=== PATIENT | male | born 1945 | race Caucasian/White ===

== ENCOUNTER 2020-05-07 11:20 | Inpatient (IN) ==
[2020-05-07 12:02] LABS: Basophils % 0.5 %; Eosinophils # 0.2 K/mcL (0.0-0.6); Eosinophils % 2.7 %; Hematocrit 34.5 % (37.5-50.1); Hemoglobin 11.2 g/dL (12.9-16.9); Immature Granulocytes % 0.5 % (0-4); Lymphocytes # 1.1 K/mcL (0.6-4.6); Lymphocytes % 12.5 %; Mean Corpuscular HGB Conc 32.5 g/dL (31.6-35.5); Mean Corpuscular Hemoglobin 28.6 pg (28.0-33.3); Mean Platelet Volume 10.2 fL (9.4-12.4); Monocytes % 11.3 %; Neutrophils # 6.2 K/mcL (1.6-8.9); Platelet Count 214 K/mcL (140-400); Red Blood Count 3.92 M/mcL (4.19-5.50); Red Cell Distribution Width 14.7 % (11.5-14.5); Segmented Neutrophils % 72.5 %; White Blood Count 8.5 K/mcL (4.3-11.1)
[2020-05-07 12:04] LABS: VBG Ionized Calcium 1.09 mmol/L (1.15-1.35)
[2020-05-07 12:05] LABS: INR 1.1; Prothrombin Time 12.4 Seconds (9.4-12.1)
[2020-05-07 12:13] LABS: Bilirubin,Urine Negative (Negative); Blood,Urine Negative (Negative); Clarity,Urine Clear (Clear); Color,Urine Light-Yellow (Yellow); Glucose,Urine (UA) Normal (Normal); Hyaline Casts,Urine Few per lpf (None Seen); Ketones,Urine Negative (Negative); Leukocyte Esterase,Urine Trace (Negative); Nitrite,Urine Negative (Negative); PH,Urine 5.5 pH Units (5.0-8.0); Protein,Urine Negative (Neg-Trace); RBC,Urine 0-3 per hpf (0-3); Specific Gravity,Urine 1.014 (1.010-1.025); Squamous Epithelial Cell,Urine Few per hpf (None-Few); Urobilinogen,Urine Normal (Normal); WBC,Urine 0-3 per hpf (0-3)
[2020-05-07 12:37] LABS: VBG HCO3 25 mEq/L (21-27); VBG PCO2 57 mmHg (41-51); VBG PH 7.26 pH Units (7.32-7.42); VBG PO2 54 mmHg (25-50)
[2020-05-07 12:48] LABS: Albumin 3.5 g/dL (3.5-5.7); Albumin/Globulin Ratio 1.2 (1.1-2.2); Bilirubin,Total 0.7 mg/dL (0.3-1.0); Calcium 8.7 mg/dL (8.6-10.3); Globulin 2.9 g/dL (2.4-3.5); Magnesium 1.7 mg/dL (1.6-2.6); Phosphorous 3.8 mg/dL (2.7-4.5); Potassium 5.2 mEq/L (3.5-5.1); Thyroid Stimulating Hormone 2.68 mcIU/mL (0.340-5.600); Total Protein 6.4 g/dL (6.4-8.9); Troponin I 0.13 ng/mL (< 0.04)
[2020-05-07] MEDS ORDERED: Aspirin 81 MG TAB.CHEW PO ONE (12:56)
[2020-05-07] MEDS ORDERED: 0.9 % Sodium Chloride 1,000 ML IVC ONE (13:42)
[2020-05-07] MEDS ORDERED: *HR* HYDROcodone/Acet 5/325 mg TABLET PO PRN (14:56)
[2020-05-07] MEDS ORDERED: Ondansetron ODT 4 MG TAB.RAPDIS SL PRN (14:57)
[2020-05-07] MEDS ORDERED: Acetaminophen 325 MG TABLET PO PRN (14:57)
[2020-05-07] MEDS ORDERED: Naloxone 0.4 MG/ML INJ IVP PRN (14:57)
[2020-05-07] MEDS ORDERED: Dextrose Gel 15 GM/37.5 ML TUBE PO PRN ×2 (16:32)
[2020-05-07] MEDS ORDERED: *HR* Dextrose 50 % in Water (Vial) 50 ML VIAL IVP PRN (16:32)
[2020-05-07] MEDS ORDERED: D5% in Water 1,000 ML IVC PRN (16:32)
[2020-05-07] MEDS: *HR* OxyCODONE/APAP 10/325 TABLET PO SCH ×2 (18:26→22:00)
[2020-05-07] MEDS: 0.9 % Sodium Chloride 1,000 ML IVC SCH (18:27)
[2020-05-07 18:45] LABS: Calcium 8.8 mg/dL (8.6-10.3); Potassium 5.8 mEq/L (3.5-5.1); Troponin I 0.09 ng/mL (< 0.04)
[2020-05-07] MEDS: Loratadine 10 MG TABLET PO SCH (21:42)
[2020-05-07] MEDS: Insulin LISPRO 300 UNITS/3 ML VIAL SQ SCH (21:43)
[2020-05-08 00:25] LABS: Hemoglobin 11.4 g/dL (12.9-16.9); Mean Corpuscular HGB Conc 32.6 g/dL (31.6-35.5); Mean Corpuscular Hemoglobin 28.9 pg (28.0-33.3); Mean Corpuscular Volume 88.6 fL (83.0-100.0); Mean Platelet Volume 9.8 fL (9.4-12.4); Platelet Count 214 K/mcL (140-400); Red Blood Count 3.95 M/mcL (4.19-5.50); Red Cell Distribution Width 14.6 % (11.5-14.5); White Blood Count 5.6 K/mcL (4.3-11.1)
[2020-05-08 01:47] LABS: Calcium 8.7 mg/dL (8.6-10.3); Magnesium 1.9 mg/dL (1.6-2.6); Phosphorous 3.2 mg/dL (2.7-4.5); Potassium 5.1 mEq/L (3.5-5.1)
[2020-05-08] MEDS: 0.9 % Sodium Chloride 1,000 ML IVC SCH ×3 (01:47→16:32)
[2020-05-08] MEDS ORDERED: Perflutren Lipid Microsphere 1.3 ML in 0.9 % Sodium Chloride 8.7 ML IVP PRN (05:47)
[2020-05-08] MEDS: valACYclovir 500 MG TABLET PO SCH (08:10)
[2020-05-08] MEDS: Aspirin Enteric Coated 81 MG Tablet PO SCH (08:10)
[2020-05-08] MEDS: Loratadine 10 MG TABLET PO SCH ×2 (08:11→21:15)
[2020-05-08] MEDS: Insulin LISPRO 300 UNITS/3 ML VIAL SQ SCH ×4 (08:34→21:15)
[2020-05-08] MEDS: *HR* OxyCODONE/APAP 10/325 TABLET PO SCH ×4 (10:45→21:15)
[2020-05-08 21:56] LABS: Sodium, Urine 106.6 mEq/L
[2020-05-09] MEDS ORDERED: Cosyntropin 250 MCG/2 ML VIAL IVP ONE (07:47)
[2020-05-09 08:10] LABS: Hematocrit 37.4 % (37.5-50.1); Hemoglobin 12.1 g/dL (12.9-16.9); Mean Corpuscular HGB Conc 32.4 g/dL (31.6-35.5); Mean Corpuscular Hemoglobin 28.2 pg (28.0-33.3); Mean Corpuscular Volume 87.2 fL (83.0-100.0); Mean Platelet Volume 9.4 fL (9.4-12.4); Platelet Count 244 K/mcL (140-400); Red Blood Count 4.29 M/mcL (4.19-5.50); Red Cell Distribution Width 14.6 % (11.5-14.5); White Blood Count 7.5 K/mcL (4.3-11.1)
[2020-05-09 08:29] LABS: BUN/Creatinine Ratio 18 (6-26); Blood Urea Nitrogen 22 mg/dL (8-23); Calcium 9.5 mg/dL (8.6-10.3); Carbon Dioxide 21 mEq/L (23-29); Chloride 97 mEq/L (98-107); Glucose 244 mg/dL (70-105); Osmolality,Calculated 279 (280-300); Potassium 4.9 mEq/L (3.5-5.1); Sodium 129 mEq/L (136-145); eGFR For African Americans > 60 (> 60); eGFR For Non-African Americans 59 (> 60)
[2020-05-09] MEDS: valACYclovir 500 MG TABLET PO SCH (08:37)
[2020-05-09] MEDS: Loratadine 10 MG TABLET PO SCH ×2 (08:38→20:15)
[2020-05-09] MEDS: Aspirin Enteric Coated 81 MG Tablet PO SCH (08:38)
[2020-05-09] MEDS: *HR* OxyCODONE/APAP 10/325 TABLET PO SCH ×4 (08:49→20:16)
[2020-05-09] MEDS: Insulin LISPRO 300 UNITS/3 ML VIAL SQ SCH ×4 (08:49→20:15)
[2020-05-10 05:06] LABS: Hematocrit 35.5 % (37.5-50.1); Hemoglobin 11.7 g/dL (12.9-16.9); Mean Corpuscular Volume 87.9 fL (83.0-100.0); Mean Platelet Volume 9.7 fL (9.4-12.4); Platelet Count 248 K/mcL (140-400); Red Blood Count 4.04 M/mcL (4.19-5.50); Red Cell Distribution Width 14.5 % (11.5-14.5); White Blood Count 6.4 K/mcL (4.3-11.1)
[2020-05-10 05:22] LABS: BUN/Creatinine Ratio 18 (6-26); Blood Urea Nitrogen 21 mg/dL (8-23); Calcium 8.9 mg/dL (8.6-10.3); Carbon Dioxide 22 mEq/L (23-29); Chloride 96 mEq/L (98-107); Glucose 224 mg/dL (70-105); Osmolality,Calculated 276 (280-300); Potassium 4.7 mEq/L (3.5-5.1); Sodium 128 mEq/L (136-145); eGFR For African Americans > 60 (> 60); eGFR For Non-African Americans > 60 (> 60)
[2020-05-10] MEDS: valACYclovir 500 MG TABLET PO SCH (07:53)
[2020-05-10] MEDS: Loratadine 10 MG TABLET PO SCH ×2 (07:53→20:13)
[2020-05-10] MEDS: Aspirin Enteric Coated 81 MG Tablet PO SCH (07:53)
[2020-05-10] MEDS: *HR* OxyCODONE/APAP 10/325 TABLET PO SCH ×4 (07:53→20:14)
[2020-05-10] MEDS: Insulin LISPRO 300 UNITS/3 ML VIAL SQ SCH ×4 (07:59→20:14)
[2020-05-11 02:22] LABS: Hematocrit 34.9 % (37.5-50.1); Hemoglobin 11.6 g/dL (12.9-16.9); Mean Corpuscular HGB Conc 33.2 g/dL (31.6-35.5); Mean Corpuscular Volume 87.3 fL (83.0-100.0); Mean Platelet Volume 9.8 fL (9.4-12.4); Platelet Count 248 K/mcL (140-400); Red Cell Distribution Width 14.4 % (11.5-14.5); White Blood Count 7.4 K/mcL (4.3-11.1)
[2020-05-11 02:43] LABS: BUN/Creatinine Ratio 17 (6-26); Blood Urea Nitrogen 20 mg/dL (8-23); Carbon Dioxide 23 mEq/L (23-29); Chloride 96 mEq/L (98-107); Glucose 205 mg/dL (70-105); Osmolality,Calculated 275 (280-300); Potassium 4.7 mEq/L (3.5-5.1); Sodium 128 mEq/L (136-145); eGFR For African Americans > 60 (> 60); eGFR For Non-African Americans > 60 (> 60)
[2020-05-11] MEDS ORDERED: Lisinopril-HCTZ 20-12.5mg TABLET PO SCH (09:00)
[2020-05-11] MEDS: *HR* OxyCODONE/APAP 10/325 TABLET PO SCH ×4 (10:24→21:22)
[2020-05-11] MEDS: valACYclovir 500 MG TABLET PO SCH (10:26)
[2020-05-11] MEDS: Loratadine 10 MG TABLET PO SCH ×2 (10:26→20:14)
[2020-05-11] MEDS: Insulin LISPRO 300 UNITS/3 ML VIAL SQ SCH ×4 (10:26→20:15)
[2020-05-11] MEDS: Aspirin Enteric Coated 81 MG Tablet PO SCH (10:26)
[2020-05-11 18:19] LABS: C-Reactive Protein < 5 mg/L (Less than 10)
[2020-05-12 06:27] LABS: Hematocrit 35.7 % (37.5-50.1); Hemoglobin 11.7 g/dL (12.9-16.9); Mean Corpuscular HGB Conc 32.8 g/dL (31.6-35.5); Mean Corpuscular Volume 88.6 fL (83.0-100.0); Mean Platelet Volume 9.8 fL (9.4-12.4); Platelet Count 232 K/mcL (140-400); Red Blood Count 4.03 M/mcL (4.19-5.50); Red Cell Distribution Width 14.7 % (11.5-14.5); White Blood Count 7.9 K/mcL (4.3-11.1)
[2020-05-12 06:49] LABS: Potassium 4.8 mEq/L (3.5-5.1)
[2020-05-12] MEDS ORDERED: lisinopriL 20 MG TABLET PO SCH (09:00)
[2020-05-12] MEDS: *HR* OxyCODONE/APAP 10/325 TABLET PO SCH ×4 (09:26→20:41)
[2020-05-12] MEDS: Loratadine 10 MG TABLET PO SCH ×2 (09:26→20:41)
[2020-05-12] MEDS: Aspirin Enteric Coated 81 MG Tablet PO SCH (09:26)
[2020-05-12] MEDS: Insulin LISPRO 300 UNITS/3 ML VIAL SQ SCH ×4 (09:27→20:42)
[2020-05-12] MEDS ORDERED: 0.9 % Sodium Chloride 1,000 ML IVC SCH (18:00)
[2020-05-12] MEDS: *HR* Heparin 5,000 UNIT/ML VIAL SQ SCH (18:47)
[2020-05-13 01:06] LABS: Hemoglobin 12.1 g/dL (12.9-16.9); Mean Corpuscular HGB Conc 33.6 g/dL (31.6-35.5); Mean Corpuscular Hemoglobin 29.5 pg (28.0-33.3); Mean Corpuscular Volume 87.8 fL (83.0-100.0); Mean Platelet Volume 9.5 fL (9.4-12.4); Platelet Count 224 K/mcL (140-400); Red Cell Distribution Width 14.6 % (11.5-14.5); White Blood Count 7.3 K/mcL (4.3-11.1)
[2020-05-13 01:26] LABS: Alanine Aminotransferase 53 Units/L (7-52); Albumin 3.6 g/dL (3.5-5.7); Albumin/Globulin Ratio 1.2 (1.1-2.2); Alkaline Phosphatase 58 Units/L (34-104); Aspartate Amino Transferase 37 Units/L (13-39); BUN/Creatinine Ratio 21 (6-26); Bilirubin,Total 0.5 mg/dL (0.3-1.0); Blood Urea Nitrogen 28 mg/dL (8-23); Calcium 8.6 mg/dL (8.6-10.3); Carbon Dioxide 23 mEq/L (23-29); Chloride 95 mEq/L (98-107); Globulin 2.9 g/dL (2.4-3.5); Glucose 213 mg/dL (70-105); Magnesium 1.7 mg/dL (1.6-2.6); Osmolality,Calculated 274 (280-300); Phosphorous 3.6 mg/dL (2.7-4.5); Potassium 4.5 mEq/L (3.5-5.1); Sodium 126 mEq/L (136-145); Total Protein 6.5 g/dL (6.4-8.9); eGFR For African Americans > 60 (> 60); eGFR For Non-African Americans 52 (> 60)
[2020-05-13] MEDS: *HR* Heparin 5,000 UNIT/ML VIAL SQ SCH (05:39)
[2020-05-13 07:34] VITALS: BP 128/76
[2020-05-13] MEDS ORDERED: Finasteride 5 MG TABLET PO SCH (09:00)
[2020-05-13] MEDS ORDERED: amLODIPine 5 MG TABLET PO SCH ×2 (09:00→09:02)
[2020-05-13] MEDS ORDERED: Sennosides/Docusate Sodium TABLET PO SCH (09:00)
[2020-05-13] MEDS: Insulin LISPRO 300 UNITS/3 ML VIAL SQ SCH ×2 (09:31→12:40)
[2020-05-13] MEDS: Aspirin Enteric Coated 81 MG Tablet PO SCH (09:31)
[2020-05-13] MEDS: *HR* OxyCODONE/APAP 10/325 TABLET PO SCH ×2 (09:31→12:40)
[2020-05-13] MEDS: Loratadine 10 MG TABLET PO SCH (09:32)
== END 2020-05-13 12:56 | DRG 682 ==
LOC: EMEROOARM 11:20 → 3NENU 11:20 → SUATTDRO 14:17 → 3NENU 16:23 → SUATTDRO 05-09 14:12
PROVIDERS: ADMIT Family Medicine; ATTEND Internal Medicine